=== PATIENT | male | born 2000 | race Caucasian/White ===

== ENCOUNTER 2023-10-09 19:43 | Emergency (ER) | payer OTHER ==
[~2023-10-09] VITALS: Ht 180.3 cm; Wt 94.3 kg
[2023-10-09 19:55] VITALS: BP 117/64
[2023-10-09 20:56] LABS: Influenza A, PCR NEGATIVE (NEGATIVE); Influenza B, PCR NEGATIVE (NEGATIVE); Resp Syncytial Virus, PCR NEGATIVE (NEGATIVE); SARS-Cov-2 (COVID-19) PCR, MMC NEGATIVE (NEGATIVE)
[2023-10-09] MEDS ORDERED: AMOX500 PO (21:23)
== END 2023-10-09 21:31 | disposition home or self-care (01) ==
LOC: ER 19:43
PROVIDERS: Anesthesiology
DX: J02.0 Streptococcal pharyngitis (principal)
CPT/HCPCS: 0241U; 87430; 99283; A9270